=== PATIENT | female | born 1970 | race Caucasian/White ===

== ENCOUNTER 2022-01-19 12:56 | Outpatient (CLI) | payer OTHER | END 2022-01-19 12:57 | disposition home or self-care (01) | LOC: BURRAD 12:56 | PROVIDERS: ATTEND Registered Nurse Community Health | DX: M54.42 Lumbago with sciatica, left side (principal); M51.37 Other intervertebral disc degeneration, lumbosacral region | CPT/HCPCS: 72110 ==